=== PATIENT | female | born 1990 | race Hispanic/Latino ===

== ENCOUNTER 2017-12-30 13:25 | Emergency (ER) | payer OTHER, SELFPAY ==
[2017-12-30] MEDS ORDERED: CODEINE 30MG/APAP 300MG TAB ONE (14:18)
[2017-12-30] MEDS ORDERED: ONDANSETRON 4 MG (ODT) TAB ONE (14:19)
--- NOTE | 2017-12-30 14:22 | EDPHYS ---
Physician Documentation [facility] Name: Alka Stringer Age: 27 yrs Sex: Female : 1990 Arrival Date: 12/30/2017 Time: 13:29 Bed 7 Private MD: out of town, doctor ED Physician Leon Lora HPI: 12/30 13:56 This 27 yrs old Female presents to ER via Ambulatory with complaints of Ear kav Pain. 13:56 The patient presents with pain, moderate, tenderness. The complaints affect the left kav ear. Onset: The symptoms/episode began/occurred acutely, 2 day(s) ago. Modifying factors: The symptoms are alleviated by nothing, the symptoms are aggravated by touching. Associated signs and symptoms: Pertinent positives: nausea. Severity of symptoms: At their worst the symptoms were moderate just prior to arrival, in the emergency department the symptoms are unchanged. The patient has not recently seen a physician. 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 - Social history:: Smoking status: Patient/guardian denies using tobacco. - Ebola Screening: : No symptoms or risks identified at this time. - Family history:: not pertinent. - Hospitalizations: : No recent hospitalization is reported. ROS: 13:58 Constitutional: Negative for fever, chills, and weight loss, Eyes: Negative for injury, kav pain, redness, and discharge, Neck: Negative for injury, pain, and swelling, Cardiovascular: Negative for chest pain, palpitations, and edema, Respiratory: Negative for shortness of breath, cough, wheezing, and pleuritic chest pain, Abdomen/GI: Negative for abdominal pain, nausea, vomiting, diarrhea, and constipation, Back: Negative for injury and pain, : Negative for injury, bleeding, discharge, and swelling, MS/Extremity: Negative for injury and deformity, Skin: Negative for injury, rash, and discoloration, Neuro: Negative for headache, weakness, numbness, tingling, and seizure, Psych: Negative for depression, anxiety, suicide ideation, homicidal ideation, and hallucinations, Allergy/Immunology: Negative for hives, rash, and allergies, Endocrine: Negative for neck swelling, polydipsia, polyuria, polyphagia, and marked weight changes, Hematologic/Lymphatic: Negative for swollen nodes, abnormal bleeding, and unusual bruising. 13:58 ENT: Positive for drainage from ear(s), ear pain. Exam: 13:58 Constitutional: This is a well developed, well nourished patient who is awake, alert, kav and in no acute distress. Head/Face: Normocephalic, atraumatic. Eyes: Pupils equal round and reactive to light, extra-ocular motions intact. Lids and lashes normal. Conjunctiva and sclera are non-icteric and not injected. Cornea within normal limits. Periorbital areas with no swelling, redness, or edema. Neck: Trachea midline, no thyromegaly or masses palpated, and no cervical lymphadenopathy. Supple, full range of motion without nuchal rigidity, or vertebral point tenderness. No Meningismus. Chest/axilla: Normal chest wall appearance and motion. Nontender with no deformity. No lesions are appreciated. Cardiovascular: Regular rate and rhythm with a normal S1 and S2. No gallops, murmurs, or rubs. Normal PMI, no JVD. No pulse deficits. Respiratory: Lungs have equal breath sounds bilaterally, clear to auscultation and percussion. No rales, rhonchi or wheezes noted. No increased work of breathing, no retractions or nasal flaring. Abdomen/GI: Soft, non-tender, with normal bowel sounds. No distension or tympany. No guarding or rebound. No evidence of tenderness throughout. Back: No spinal tenderness. No costovertebral tenderness. Full range of motion. Skin: Warm, dry with normal turgor. Normal color with no rashes, no lesions, and no evidence of cellulitis. MS/ Extremity: Pulses equal, no cyanosis. Neurovascular intact. Full, normal range of motion. Neuro: Awake and alert, GCS 15, oriented to person, place, time, and situation. Cranial nerves II-XII grossly intact. Motor strength 5/5 in all extremities. Sensory grossly intact. Cerebellar exam normal. Normal gait. Psych: Awake, alert, with orientation to person, place and time. Behavior, mood, and affect are within normal limits. 13:58 ENT: External ear(s): are unremarkable, no acute changes, Ear canal(s): are normal, no acute changes, TM's: decreased mobility, loss of bony landmarks, on the left, No discharge from left ear noted on examination, Examination of the other ear shows no obvious abnormality, Nose: Vital Signs: 13:34 BP 151 / 98; Pulse 83; Resp 15; Temp 96.8(TE); Pulse Ox 97% ; Weight 114.76 kg (R); lk1 Height 5 ft. 2 in. (157.48 cm) (R); Pain 6/10; 13:34 Body Mass Index 46.27 (114.76 kg, 157.48 cm) lk1 MDM: 13:44 Medical screening is not applicable. [facility] 13:58 Data reviewed: vital signs, nurses notes. [facility] 12/30 15:00 Order name: Urine Dipstick--Ancillary (enter results) [facility] 12/30 15:00 Order name: Urine --Ancillary (enter results) [facility] 12/30 15:25 Interpretation: Within normal limits. [facility] 12/30 15:00 Order name: Urine Dipstick-Ancillary (obtain specimen); Complete Time: 15:00 [facility] 12/30 15:24 Interpretation: Within normal limits. [facility] 12/30 15:00 Order name: Urine Test (obtain specimen); Complete Time: 15:00 [facility] 12/30 15:23 Interpretation: Within normal limits. [facility] Administered Medications: 14:19 Drug: Tylenol #3 (300 mg-30 mg) 1 tablet Route: PO; aa5 15:05 Follow up: Response: No adverse reaction aa5 14:20 Drug: Zofran 4 mg Route: PO; aa5 15:05 Follow up: Response: No adverse reaction aa5 15:05 Drug: TORadol 30 mg Route: IM; Site: right deltoid; aa5 15:20 Follow up: Response: No adverse reaction aa5 15:06 CANCELLED (changed route per TECHNICAL SALES CONSULTANT ): TORadol 30 mg IVP once aa5 Disposition: 12/30/17 14:22 Discharged to Home. Impression: Acute suppurative otitis media without spontaneous rupture of ear drum, Nausea, Essential (primary) hypertension. - Condition is Stable. - Discharge Instructions: Otitis Media, Adult, Hypertension, Nausea, Adult. - Prescriptions for Amoxicillin 500 mg Oral Capsule - take 1 capsule by ORAL route every 8 hours for 10 days; 30 tablet. Ibuprofen 800 mg Oral Tablet - take 1 tablet by ORAL route every 8 hours As needed take with food; 30 tablet. Zofran 4 mg Oral Tablet - take 1 tablet by ORAL route every 12 hours As needed; 20 tablet. Tylenol- Codeine #3 300-30 mg Oral Tablet - take 2 tablets by ORAL route every 6 hours As needed; 10 tablet. - Medication Reconciliation Form, Thank You Letter, Antibiotic Education, Prescription Opioid Use form. - Follow up: Private Physician; When: 5 - 6 days; Reason: If symptoms return, Recheck today's complaints, Continuance of care, Re-evaluation by your physician. - Problem is new. - Symptoms have improved. Addendum: 01/06/2018 11:23 Co-signature as Attending Physician, Leon Lora MD I agree with the assessment and k dr plan of care. Signatures: Dispatcher [employer] EDMS Leon Lora MD MD kdr Vern, Katherine, DETAIL TECHNICIAN DETAIL TECHNICIAN Sharon Kaufman, RN RN Haris Sanchez em1 Jana Elias, RN RN aa5 Raisa Sahu RN RN lk1 Corrections: (The following items were deleted from the chart) 12/30 15:06 14:38 TORadol 30 mg IVP once ordered. marvin luo 15:06 15:06 TORadol 30 mg IVP once ordered. valerio aa5 15:27 14:22 12/30/2017 14:22 Discharged to Home. Impression: Acute suppurative otitis media iw without spontaneous rupture of ear drum; Nausea; Essential (primary) hypertension. Condition is Stable. Discharge Instructions: Otitis Media, Adult, Nausea, Adult. Prescriptions for Amoxicillin 500 mg Oral Capsule - take 1 capsule by ORAL route every 8 hours for 10 days; 30 tablet. and Forms are Medication Reconciliation Form, Thank You Letter, Antibiotic Education, Prescription Opioid Use. Follow up: Private Physician; When: 5 - 6 days; Reason: If symptoms return, Recheck today's complaints, Continuance of care, Re-evaluation by your physician. Problem is new. Symptoms have improved. katrina
--- NOTE | 2017-12-30 14:22 | ER ---
Nurse's Notes [facility] Name: Alka Stringer Age: 27 yrs Sex: Female : 1990 Arrival Date: 12/30/2017 Time: 13:29 Bed 7 Private MD: out of town, doctor Diagnosis: Acute suppurative otitis media without spontaneous rupture of ear drum;Nausea;Essential (primary) hypertension Presentation: 12/30 13:32 Presenting complaint: Patient states: "I am having pain and drainage in my left ear lk1 that is giving me stabbing pains in my head.". Transition of care: patient was not received from another setting of care. Onset of symptoms was December 26, 2017. Risk Assessment: Do you want to hurt yourself or someone else? Patient reports no desire to harm self or others. Initial Sepsis Screen: Does the patient meet any 2 criteria? No. Patient's initial sepsis screen is negative. Does the patient have a suspected source of infection? No. Patient's initial sepsis screen is negative. Care prior to arrival: None. 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 - Social history:: Smoking status: Patient/guardian denies using tobacco. - Ebola Screening: : No symptoms or risks identified at this time. - Family history:: not pertinent. - Hospitalizations: : No recent hospitalization is reported. Screenin:10 Abuse screen: Denies threats or abuse. Nutritional screening: No deficits noted. aa5 Tuberculosis screening: No symptoms or risk factors identified. Fall Risk None identified. Assessment: 14:10 General: Appears uncomfortable, Behavior is calm, cooperative. Pain: Complains of pain aa5 in left ear Pain does not radiate. Pain currently is 6 out of 10 on a pain scale. Quality of pain is described as sharp, throbbing, Is continuous. Neuro: Level of Consciousness is awake, alert, obeys commands, Oriented to person, place, time, situation. Cardiovascular: Heart tones S1 S2 present Rhythm is regular. Respiratory: Airway is patent Respiratory effort is even, unlabored, Respiratory pattern is regular, symmetrical. GI: No signs and/or symptoms were reported involving the gastrointestinal system. : No signs and/or symptoms were reported regarding the genitourinary system. EENT: Reports pain in left ear. Derm: Skin is pink, warm \\T\\ dry. Musculoskeletal: Range of motion: intact in all extremities. 15:25 Reassessment: Patient is alert, oriented x 3, equal unlabored respirations, skin aa5 warm/dry/pink. Pain: Pain currently is 5 out of 10 on a pain scale. Vital Signs: 13:34 BP 151 / 98; Pulse 83; Resp 15; Temp 96.8(TE); Pulse Ox 97% ; Weight 114.76 kg (R); lk1 Height 5 ft. 2 in. (157.48 cm) (R); Pain 6/10; 13:34 Body Mass Index 46.27 (114.76 kg, 157.48 cm) lk1 ED Course: 13:29 Patient arrived in ED. mr 13:29 out of town, doctor is Private Physician. mr 13:33 Triage completed. lk1 13:35 Arm band placed on right wrist. lk1 13:44 Destiny Brooks FNP is [facility]av 13:44 Leon Lora MD is Attending Physician. kav 13:51 Jana Elias, RN is Primary Nurse. aa5 14:10 Patient has correct armband on for positive identification. Bed in low position. Call aa5 light in reach. Side rails up X 1. 14:31 No provider procedures requiring assistance completed. aa5 15:25 Patient did not have IV access during this emergency room visit. aa5 Administered Medications: 14:19 Drug: Tylenol #3 (300 mg-30 mg) 1 tablet Route: PO; aa5 15:05 Follow up: Response: No adverse reaction aa5 14:20 Drug: Zofran 4 mg Route: PO; aa5 15:05 Follow up: Response: No adverse reaction aa5 15:05 Drug: TORadol 30 mg Route: IM; Site: right deltoid; aa5 15:20 Follow up: Response: No adverse reaction aa5 15:06 CANCELLED (changed route per DELIVERY CLERK ): TORadol 30 mg IVP once aa5 Outcome: 14:22 Discharge ordered by . marvin 15:25 Discharged to home ambulatory. aa5 15:25 Condition: stable 15:25 Discharge instructions given to patient, Instructed on discharge instructions, follow up and referral plans. medication usage, Demonstrated understanding of instructions, follow-up care, medications, Prescriptions given X 4. 15:27 Patient left the ED. Signatures: Destiyn Brooks, Helen Hallman mr Sharon Urbina RN RN Jana Elias RN RN aa5 Raisa Sahu RN RN lk1
[2017-12-30] MEDS ORDERED: KETOROLAC 30 MG/ML INJ ONE (14:40)
[2017-12-30 15:59] LABS: Urine Blood NEGATIVE (NEG); Urine Glucose NEGATIVE (NEG); Urine Protein NEGATIVE (NEG)
== END 2017-12-30 15:27 | disposition home or self-care (01) ==
LOC: ER 13:25
DX: H66.009 Acute suppurative otitis media without spontaneous rupture of ear drum, unspecified ear (principal); R11.0 Nausea; I10 Essential (primary) hypertension
CPT/HCPCS: 81003; 81025; 96372; 99283

== ENCOUNTER 2022-07-06 07:54 | Inpatient (IN) | payer SELFPAY ==
[2022-07-06 11:44] LABS: Absolute Lymphocytes (CBC) 1.8 K/uL (0.7-4.9); Hematocrit 36.5 % (36.0-45.0); Lymphocytes % 18.5 % (15.3-44.8); MCV 85.1 fL (80-100); MPV 8.4 fL (7.6-11.3); RBC Red Blood Cell Count 4.29 M/uL (3.86-4.86)
[2022-07-06 11:51] LABS: Protime INR 0.97
[2022-07-06 12:03] LABS: Specific Gravity 1.014 (1.005-1.030); Urine Bacteria None Seen /HPF (<20); Urine Bilirubin NEGATIVE (Negative); Urine Blood Negative (Negative); Urine Clarity Clear (Clear); Urine Color Light-Yellow (Yellow); Urine Glucose NEGATIVE (Negative); Urine Mucus Slight /HPF (None Seen); Urine Protein NEGATIVE (Negative); Urine RBC <5 /HPF (None Seen); Urine Urobilinogen Normal (Normal); Urine pH 6.5 (5.0-7.0)
[2022-07-06 12:33] LABS: SARS-CoV-2 Antigen Rapid Res Negative (Negative)
[2022-07-07 02:24] LABS: RPR (Rapid Plasma Reagin) NON-REACT (NON-REACT)
[2022-07-07] MEDS ORDERED: Ringers Lactate 1,000 ML IV PRN (04:00)
[2022-07-07] MEDS ORDERED: Ringers Lactate 1,000 ML IV SCH (04:00)
--- OUTSIDE RECORDS SUMMARY | 2022-07-07 04:20 | XMS REPORT | Continuity of Care Document ---
:1990 Author Organization [facility] t Address [address] [place] [address] Care Team Providers Name Role Phone PCP, PATIENT DOES NOT HAVE A Primary Care Physician Yesenia Champagne Attending Clinician YESENIA GUERRERO Attending Clinician Unavailable YESENIA GUERRERO Admitting Clinician Unavailable Payers Payer Name Policy Type Policy Number Effective Date Expiration Date [facility] [id number] 2014 CHOICE MEDICAID 00:00:00 Problems Condition Condition Condition Status Onset Resolution Last Treating Co mments Source Name Details Category Date Date Treatment Clinician Date No known No known Disease Unive rs active active ity of problems problems [facility] Allergies, Adverse Reactions, Alerts Allergy Allergy Status Severity Reaction(s) Onset Inactive Treating Comm ents Source Name Type Date Date Clinician Honey Propensi Active Swelling Univer s ty to 11-07 ity of adverse 00:00: [place] reaction 00 [facility] [place] HONEY DRUG Active Swelling Univers INGREDI -06 ity of 00:00: [address] NO KNOWN Drug Active Univers ALLERGIE Class ity of S [facility] Social History Social Habit Start Date Stop Date Quantity Comments Source Exposure to 2021-10-28 2021-11-07 Not sure [facility] SARS-CoV-2 (event) 00:00:00 18:28:00 Medica l Branch Sex Assigned At [birth year] [facility] 00:00:00 00:00:00 Medical [place] Smoking Status Start Date Stop Date Source Unknown if ever smoked [facility] Medications Ordered Filled Start Stop Current Ordering Indication Dosage Frequency Signature Comments Components Source Medication Medication Date Date Medication? Clinician (SIG) Name Name No known No Univers medications - ity of 18:33: [place] 15 [facility] Vital Signs Vital Name Observation Time Observation Value Comments Source Systolic blood 2021-11-07 23:29:00 144 mm[Hg] [facility] Diastolic blood 2021-11-07 23:29:00 84 mm[Hg] [facility] Heart rate 2021-11-07 23:29:00 91 /min [facility] Body temperature 2021-11-07 23:29:00 36.72 [facility] Respiratory rate 2021-11-07 23:29:00 18 /min [facility] Body height 2021-11-07 23:29:00 157.5 cm [facility] Body weight 2021-11-07 23:29:00 91.491 kg [facility] BMI 2021-11-07 23:29:00 36.89 kg/m2 [facility] Oxygen saturation in 2021-11-07 23:29:00 100 /min [facility] Arterial blood by [facility] Pulse oximetry Branch Procedures Procedure Date / Time Performing Clinician Source Performed US PELVIS COMPLETE WITH 2021-11-08 00:53:19 Yesenia Guerrero [facility] TRANSVAGINAL [facility] COMP. METABOLIC PANEL 2021-11-08 00:19:00 Yesenia Guerrero [facility] ([id number]) [facility] TOTAL BETA HCG ASSAY 2021-11-08 00:19:00 Yesenia Guerrero [facility] CBC WITH DIFF 2021-11-08 00:19:00 Yesenia Guerrero [facility] POCT TEST 2021-11-07 23:38:00 Yesenia Guerrero [facility] URINALYSIS 2021-11-07 23:37:00 Christina Urbina [facility] NOTICE OF PRIVACY 2021-11-07 23:23:43 Doctor Unassigned, No Univ [facility] PRACTICES Name [facility] Branch CONSENT/REFUSAL FOR 2021-11-07 23:21:36 Doctor Un[facility]igned, [facility] [place] [facility] Name [facility] Encounters Start End Encounter Admission Attending Care Care Encounter Source Date/Time Date/Time Type Type Clinicians Facility Department ID 2021-11-07 2021-11-07 Emergency [facility] [id number] Univers 18:41:00 23:23:00 Yesenia BLANCO [id number] i ty [facility] [id number] [facility] [id number] [facility] 084 Branch 2021-11-07 2021-11-07 Emergency X [facility] ERT [id number] Univers 18:41:00 23:23:00 YESENIA freyolinda [facility] Results Test Description Test Time Test Comments Results Result Comments Source TOTAL BETA HCG ASSAY 2021-11-08 02:22:42 Test Item Value Reference Range Interpretation Comme nts BETA HCG (test code = See_Comment [Auto mated message] The [id number]) system which ge nerated this result transmit janeth reference range : Non- fe male and male patients: <5 mIU/mL. The reference r marita was not used to interpr et this result as trina l/abnormal. FREDRICK (test code = FREDRICK) Gestational Age ?Range (mIU/mL) 1-10 ?Weeks ?[id number] Weeks ?[id number] Weeks ?[id number] Weeks ?[id number] Biotin has been reported to cause a negative bias, interpret results relative to patient's use of biotin. [facility] ([id number])2021-11-08 00:40:40 Test Item Value Reference Range Interpretation Comments NA (test code = 136 mmol/L 135-145 9309538120) K (test code = 4.2 mmol/L 3.5-5.0 9005708939) CL (test code = 103 mmol/L 98-108 8791391331) CO2 TOTAL (test code 24 mmol/L 23-31 = 7507417598) AGAP (test code = 2-16 0691490574) BUN (test code = 13 mg/dL 7-23 6264635339) GLUCOSE (test code = 101 mg/dL 70-110 3619603321) CREATININE (test code 0.57 mg/dL 0.50-1.04 = 9326219072) TOTAL BILI (test code 0.6 mg/dL 0.1-1.1 = 4411340282) CALCIUM (test code = 8.8 mg/dL 8.6-10.6 0646610594) T PROTEIN (test code 6.9 g/dL 6.3-8.2 = 8256507688) ALBUMIN (test code = 4.2 g/dL 3.5-5.0 5099022486) ALK PHOS (test code = 81 U/L 34-122 7474034266) ALTv (test code = 18 U/L 5-35 2-6) AST(SGOT) (test code 21 U/L 13-40 = 9299468399) eGFR (test code = mL/min/1.73m2 5918364196) FREDRICK (test code = FREDRICK) Association of Glomerular Filtration Rate (GFR) and Staging of Kidney Disease* + + +- +| GFR (mL/min/1.73 m2) ?| With Kidney Damage ?| ?Without Kidney Damage+ ------+ ----+ ------+| ?>90 ?| ?Stage one ?| ? Normal ?+ -+ + -+| ?60-89 ?| ?Stage two ?| ? Decreased GFR ? + + +- +| ?30-59 ?| ?Stage three ?| ? Stage three ? + + +- +| ?15-29 ?| ?Stage four ? | ? Stage four ?+ -+ + -+| ?<15 (or dialysis) ? ?| ?Stage five ? | ? Stage five ?+ -+ + -+ *Each stage assumes the associated GFR level has been in effect for at least three months. ?Stages 1 to 5, with or without kidney disease, indicate chronic kidney disease. Notes: Determination of stages one and two (with eGFR >59mL/min/1.73 m2) requires estimation of kidney damage for at least three months as defined by structural or functional abnormalities of the kidney, manifested by either:Pathological abnormalities or Markers of kidney damage (including abnormalities in the composition of the blood or urine or abnormalities in imaging tests). [facility] WITH [id number] 00:28:41 Test Item Value Reference Range Interpretation Comments WBC (test code = See_Comment [Automated 6690-2) message] The sy stem which generated this result transmitted reference range : 4.30 - 11.10 10*3/?L. The reference range was not used to interpret this result as normal/abnormal . RBC (test code = See_Comment [Automated 789-8) message] The sy stem which generated this result transmitted reference range : 3.93 - 5.25 10*6/?L. The reference range was not used to interpret this result as normal/abnormal . HGB (test code = 14.5 g/dL 11.6-15.0 718-7) HCT (test code = 42.0 % 35.7-45.2 4544-3) MCV (test code = 87.9 fL 80.6-95.5 787-2) MCH (test code = 30.3 pg 25.9-32.8 785-6) MCHC (test code = 34.5 g/dL 31.6-35.1 786-4) RDW-SD (test code = 38.6 fL 39.0-49.9 L 42501-9) RDW-CV (test code = 12.0 % 12.0-15.5 788-0) PLT (test code = See_Comment [Automated 777-3) message] The sy stem which generated this result transmitted reference range : 166 - 358 10*3/ ?L. The reference r marita was not used to interpret this result as normal/abnormal . MPV (test code = 9.0 fL 9.5-12.9 L 53492-5) NRBC/100 WBC (test See_Comment [Automat ed code = 6222134887) message] The system which generated this result transmitted reference range : 0.0 - 10.0 /100 WBCs. The refer ence range was not u sed to interpret th is result as normal/abnormal . NRBC x10^3 (test code <0.01 See_Comment [Auto mated = 6516980874) message] The s ystem which generated this result transmitted reference range : 10*3/?L. The reference range was not used to interpret this result as normal/abnormal . GRAN MAT (NEUT) % 56.7 % (test code = 770-8) IMM GRAN % (test code 0.20 % = 0757818051) LYMPH % (test code = 35.5 % 736-9) MONO % (test code = 5.3 % 5905-5) EOS % (test code = 1.6 % 713-8) BASO % (test code = 0.7 % 706-2) GRAN MAT x10^3(ANC) 4.99 10*3/uL 1.88-7.09 (test code = 1538385363) IMM GRAN x10^3 (test <0.03 0.00-0.06 code = 3507627745) LYMPH x10^3 (test code 3.12 10*3/uL 1.32-3.29 = 731-0) MONO x10^3 (test code 0.47 10*3/uL 0.33-0.92 = 742-7) EOS x10^3 (test code = 0.14 10*3/uL 0.03-0.39 711-2) BASO x10^3 (test code 0.06 10*3/uL 0.01-0.07 = 704-7) Lab Interpretation Abnormal (test code = 70120-7) [id number] 23:38:00 Test Item Value Reference Range Interpretation Comments POCT PREG (test code = 1605) POSITIVE On board controls acceptable with Present C Line (test code = 3574) POCT PREG LOT # (test code = 3575) [id number] POCT PREG TEST DATE (test 04/03/2023 code = 3576) Lab Interpretation (test code = Normal 65251-3) [facility]"
[2022-07-07 05:21] VITALS: BMI 40.2
[2022-07-07 05:29] VITALS: O2SAT 99
[2022-07-07] MEDS ORDERED: NA CIT/CITRIC AC 30 ML ORAL UDC PO ONE (06:00)
[2022-07-07] MEDS ORDERED: METOCLOPRAMIDE 10 MG/2mL INJ IV SCH (06:00)
[2022-07-07] MEDS ORDERED: CEFAZOLIN SODIUM 2 GM in NA CHLORIDE 0.9% 100 ML IVPB SCH (06:30)
[2022-07-07] MEDS ORDERED: FAMOTIDINE 20 MG/2 ML VIAL IV SCH ×2 (06:30)
[2022-07-07] MEDS ORDERED: CARBOPROST TROME 250 MCG/ML IM ONE (07:00)
[2022-07-07] MEDS ORDERED: METHYLERGONOVINE 0.2MG/ML AMP IM ONE (07:00)
[2022-07-07] MEDS ORDERED: LIDOCAINE 1% MPF 5 ML VIAL ONE ×2 (07:22→07:27)
[2022-07-07] MEDS ORDERED: NS 0.9% VIAL 10 ML ONE (07:33)
[2022-07-07] MEDS ORDERED: Phenylephrine HCl 10 MG/ML 1 ML VIAL ONE (07:33)
[2022-07-07] MEDS ORDERED: OXYTOCIN 10 UNIT/ML ML ONE (07:38)
[2022-07-07] MEDS ORDERED: MORPHINE SULFATE/PF 1 MG/ML (10 ML AMP) ONE (08:12)
[2022-07-07] MEDS ORDERED: ONDANSETRON 4 MG/2 ML VIAL IV PRN (08:23)
[2022-07-07] MEDS ORDERED: IBUPROFEN 600 MG TAB PO PRN (08:23)
[2022-07-07] MEDS ORDERED: ACETAMINOPHEN 500 MG TAB PO PRN ×2 (08:23)
[2022-07-07] MEDS ORDERED: Oxycodone HCl/Acetaminophen 1 TAB TAB PO PRN (08:23)
[2022-07-07] MEDS ORDERED: BISACODYL 10 MG RECTAL SUPP RC PRN (08:23)
[2022-07-07] MEDS ORDERED: KETOROLAC 30 MG/ML INJ IM PRN (08:23)
[2022-07-07] MEDS ORDERED: ONDANSETRON 4 MG (ODT) TAB PO PRN (08:23)
[2022-07-07] MEDS ORDERED: DIPHENHYDRAMINE 25 MG TAB/CAP PO PRN (08:23)
[2022-07-07] MEDS: KETOROLAC 30 MG/ML INJ IV PRN ×2 (08:50→23:32)
[2022-07-07] MEDS ORDERED: OXYTOCIN/LR 20 UNIT/1,000 ML BAG IV SCH (09:00)
--- NOTE | 2022-07-07 09:47 | OP ---
Surgeon: Romain Evans MD [employer] Installer: Guille Sylvester MD. Anesthesiologist: Dr. Kj Sierra. Indications: A 32-year-old female, 2, para 1, for repeat section, at 39 weeks 1 day . Full preoperative counseling concerning procedure and possible complications including infection; blood loss; anesthetic complications; injury to bladder, bowel, ureter; postoperative complications; clots in legs; pneumonia. The patient knows fully well, does not constitute all the possible problem s that could occur during or following surgery. Procedure In Detail: After spinal block anesthesia had been established, and prepping and draping, t miriam-out was performed. Pfannenstiel incision was then created over the previous incision site. The incision was carried to the fascia, and the fascia was incised and incision carried transversely. An terior and posterior fascial planes were developed with both blunt and sharp dissection. A peritonea l defect was seen in the upper part, close to the upper flap of the fascia entered here. Low transve rse bladder flap was developed as the bladder was fairly significantly adhered to the lower uterine s egment. At this point, a low transverse incision was created. The baby was noted to be breech to ob lique position with the head on the maternal left higher than the buttocks on the maternal right. Ba by was converted to a basim breech and delivered easily. Apgars 9 and 9. Cord blood specimen obtain ed. Placenta removed manually and cleared of clot and blood. Cervical os dilated with ring clamp. Uterus closed with a running lock stitch of 1 chromic followed by a single [id number] stitch in the right angle for complete hemostasis. Estimated blood loss during procedure 800 cc. The patient was given IV drip Pitocin and 0.2 mg of Methergine. Gutters cleared of clot and blood. Uterus repla landon in the peritoneal cavity. Gutters again inspected. Bladder flap inspected. No further bleeding from the incision site. The rectus muscles were reapproximated using 0 Dexon 2 interrupted sutures. Then for the fascia, PDS was used running from either angle to the midline. Subcutaneous tissue wa s closed with 2-0 plain, and then, odette used for the skin. The patient had been given 2 g of Ance f prior to the procedure. Tolerated all procedures well. Transferred back to her room in good condi tion. Final Diagnoses: Term intrauterine 39 weeks 1 day, repeat section, spinal block a nesthesia, the baby delivered basim breech. ALEXXC/MODL Voice ID: [id number] Report ID: [id number]
[2022-07-07] MEDS ORDERED: D5LR 1,000 ML IV SCH (10:00)
[2022-07-07] MEDS ORDERED: OXYTOCIN/LR 1,000 ML IV SCH (10:00)
[2022-07-07] MEDS: D5LR 1,000 ML with OXYTOCIN 20 UNIT IV SCH ×2 (11:14)
[2022-07-07] MEDS ORDERED: CEFAZOLIN SODIUM 2 GM in NA CHLORIDE 0.9% 100 ML IVPB ONE (16:00)
[2022-07-07] MEDS: Oxycodone HCl/Acetaminophen 1 TAB TAB PO PRN (18:10)
[2022-07-08] MEDS: D5LR 1,000 ML with OXYTOCIN 20 UNIT IV SCH ×2 (04:45)
[2022-07-08] MEDS: KETOROLAC 30 MG/ML INJ IV PRN (07:13)
--- NOTE | 2022-07-08 08:05 | PN ---
Postoperatively doing quite well. Lochia is normal from minimal. Vital signs are all stable. Posto peratively, H and H with minimal change. She has no complaints or problems this morning. We will di scontinue her IV and take out the Bruno. She is encouraged to walk. We will begin p.o. intake. She is advised to avoid fried foods and anything greasy. If she is not hungry, she is encouraged to dri nk. Offered flu shot, which she has declined and Tdap shot she has already had. Full postop instruc tions given. We will either let the patient go home later this evening or more likely tomorrow larissa short. No post spinal block problems. Doing quite well. MICHAEL/MODL Voice ID: [id number] Report ID: [id number]
[2022-07-08] MEDS: Oxycodone HCl/Acetaminophen 1 TAB TAB PO PRN (09:52)
[2022-07-08 16:43] VITALS: BP 99/56; TEMP 98.9
--- NOTE | 2022-07-09 07:44 | DS ---
Date of Discharge: 07/08/2022 Alka Stringer is a 32-year-old female 2, para 1, repeat section, at 39 weeks 1 day, sp inal block anesthesia, underwent repeat section without difficulties, estimated blood loss 8 00 cc or less. At the time of surgery, anterior light adhesions were noted, but presented now with m ajor problem. Baby was delivered basim breech without difficulties, good Apgars 9 and 9. Postoperat ively, she did well, remained afebrile, dismissed in less than 48 hours after delivery at her request to return to my office next week for followup. To report any temperature elevation of 100 degrees o r greater, severe pain, heavy bleeding, or any other type of abnormalities. Dismissed with tramadol for analgesia. She knows this goes through the breast milk and will take medications judiciously. S he was given Ancef prior to the procedure and 8 hours postop for prophylaxis. Rh positive, immune to Rubella. Negative strep. Final Diagnoses: Term intrauterine , repeat section, spinal block anesthesia. Bab y delivered basim breech. MICHAEL/TRINI Voice ID: [id number] Report ID: [id number]
== END 2022-07-08 19:15 | disposition home or self-care (01) | DRG 787 ==
LOC: 2ND-WC 07-07 04:16
PROVIDERS: ADMIT Specialist; ATTEND Specialist
PROC: 10D00Z1 Extraction of Products of Conception, Low, Open Approach (ICD-10-PCS; principal; 2022-07-07 07:30)
DX: O34.219 Maternal care for unspecified type scar from previous cesarean delivery (principal); O36.0930 Maternal care for other rhesus isoimmunization, third trimester, not applicable or unspecified; Z3A.39 39 weeks gestation of pregnancy; Z37.0 Single live birth; O32.1XX0 Maternal care for breech presentation, not applicable or unspecified; Z20.822 Contact with and (suspected) exposure to COVID-19
CPT/HCPCS: 36415; 81001; 85014; 85025; 85610; 85730; 86592; 86850; 86900; 86901; 87811; 88307; A4216; J2001; J2210; J2370; J2405; J2590; J2765; J7120; J7121